=== PATIENT | female | born 1980 | race Caucasian/White ===

== ENCOUNTER 2023-04-07 19:48 | Emergency (ER) | payer SELFPAY ==
[~2023-04-07] VITALS: Ht 154.9 cm; Wt 97.0 kg
[2023-04-07 19:54] VITALS: O2SAT 98
[2023-04-07] MEDS ORDERED: IBUPROFEN 400MG TABLET PO NR (21:30)
[2023-04-07] MEDS ORDERED: IBUPROFEN 800MG TABLET PO ONE (21:30)
[2023-04-07 21:50] VITALS: BP 139/85
[2023-04-07 22:18] VITALS: PULSE 99; RESP 18; TEMP 98.4
== END 2023-04-07 22:20 | disposition home or self-care (01) ==
LOC: ER 19:48
DX: S39.012A Strain of muscle, fascia and tendon of lower back, initial encounter (principal); V89.2XXA Person injured in unspecified motor-vehicle accident, traffic, initial encounter; Y93.89 Activity, other specified; Y92.89 Other specified places as the place of occurrence of the external cause; Y99.8 Other external cause status
CPT/HCPCS: 81025; 99283